=== PATIENT | male | born 1975 | race Two or more races ===

== ENCOUNTER 2018-06-22 21:14 | Emergency (ER) | payer BC ==
[~2018-06-22] VITALS: Ht 182.9 cm; Wt 86.2 kg
--- NOTE | 2018-06-22 21:28 | NUR ---
Patient ambulated with stable gait. A/Ox4. Speech is clear, speaks in complete sentences. No neuro deficits noted. Patient came in for c/o cp which initially started this morning when he woke up, he took an Aspirin 81mg PO, and he stated the pain resolved. When he took a nap in the afternoon and woke up around 1800, he stated the pain was worst. Upon assessment of pain he stated that the pain starts in his left chest close to the axilla area and radiates down to left hand. Respiratory even and unlabored, no cough no sob. No GI/ symptoms displayed. Patient in bed at lowest position, sr upx2, call light within reach. Fall precautions implemented per protocol.
[2018-06-22] MEDS ORDERED: ASPIRIN 81 MG TAB.CHEW PO ONE (21:30)
[2018-06-22] MEDS ORDERED: ASPIRIN 81 MG TAB.CHEW ONE (21:38)
[2018-06-22 21:41] LABS: BASOPHILS % (AUTO) 0.4 % (0.0-2.0); EOSINOPHILS # (AUTO) 0.1 K/uL (0.0-0.7); EOSINOPHILS % (AUTO) 1.5 % (0.0-7.0); LYMPHOCYTES % (AUTO) 42.8 % (20.5-51.5); MEAN CORPUSCULAR HEMOGLOBIN 30.9 uug (23.8-33.4); MEAN CORPUSCULAR HGB CONC 34 g/dL (32.5-36.3); MEAN CORPUSCULAR VOLUME 90.5 fL (73.0-96.2); MONOCYTES # (AUTO) 0.3 K/uL (2.0-10.0); MONOCYTES % (AUTO) 5.7 % (0.0-11.0); NEUTROPHILS # (AUTO) 2.3 K/uL (1.8-8.9); NEUTROPHILS % (AUTO) 49.6 % (38.5-71.5); PLATELET COUNT (AUTO) 119 K/uL (152-348); RED BLOOD CELL COUNT(AUTO) 5.19 MIL/uL (4.06-5.63); WHITE BLOOD COUNT (AUTO) 4.6 K/uL (3.6-10.2)
[2018-06-22 21:45] LABS: CREATININE 1.2 mg/dL (0.6-1.3); POTASSIUM 4.3 mmol/L (3.5-5.1)
--- NOTE | 2018-06-22 22:45 | NUR ---
Patient discharged to home in stable conditon. Written and verbal after care instructions given. Patient verbalizes understanding of instructions. Patient ambulated with stable gait. Per ERMD, advised patient to follow up with Dr. Bae for cardiac stress test, patient understands.
[2018-06-22 22:46] VITALS: BP 140/78
== END 2018-06-22 22:49 | disposition home or self-care (01) ==
LOC: ER 21:16
DX: R07.89 Other chest pain (principal); Z90.89 Acquired absence of other organs
CPT/HCPCS: 36415; 70030-TC; 71045; 85025; 85730; 93005; A4663